=== PATIENT | female | born 1995 | race African-American/Black ===

== ENCOUNTER 2017-03-11 15:43 | Emergency (ER) | payer BC ==
[~2017-03-11] VITALS: Ht 165.1 cm; Wt 79.5 kg
[~2017-03-11 15:43] MED LIST: NAPROSYN500 MG PO; PERCOCET 5/31 TABLET PO
[2017-03-11 16:49] LABS: ADD MIUA? YES; BILIRUBIN NEGATIVE; BLOOD NEGATIVE; COLOR YELLOW ((YELLOW)); GLUCOSE (STRIP) NEGATIVE; KETONES NEGATIVE; LEUKOCYTES NEGATIVE; NITRITE NEGATIVE; PROTEIN (STRIP) NEGATIVE; SPECIFIC GRAVITY 1.018 (1.000-1.030); UROBILINOGEN 0.2 MG/DL (0.2-1.0)
[2017-03-11 16:53] LABS: HEMATOCRIT 42.3 % (36.0-46.0); MCH 28.6 PG (29.0-34.0); MCHC 33.6 G/DL (30.0-36.0); MCV 85.1 FL (83-99); MEAN PLAT.VOLUME 10.2 uM^3 (9.5-12.4); PLATELET COUNT 229 K/uL (156-360); RBC DIS.WIDTH-CV 13.4 % (11.8-14.6); RED BLOOD COUNT 4.97 M/uL (3.80-5.20)
[2017-03-11 17:09] LABS: BACTERIA NONE SEEN /HPF; CASTS NONE SEEN /LPF; CRYSTALS NONE SEEN; EPITHELIAL CELLS RARE /HPF; MUCUS NONE SEEN /LPF; RED BLOOD CELLS 0-5 /HPF (0-5); WHITE BLOOD CELLS RARE /HPF (0-5)
[2017-03-11 17:10] LABS: CHLORIDE 107 mEq/L (99-109); POTASSIUM 4.4 mEq/L (3.7-5.4); SODIUM 141 mEq/L (136-147)
[2017-03-11 17:12] LABS: GLUCOSE 89 mg/dL (70-99)
[2017-03-11 17:13] LABS: ANION GAP 11 MEQ/L (2-14)
[2017-03-11 17:14] LABS: TOTAL BILIRUBIN 0.5 mg/dL (0.0-1.0)
[2017-03-11 17:15] LABS: ALKALINE PHOSPHATASE 50 IU/L (3-129)
[2017-03-11 17:16] LABS: GFR ESTIMATE (CALCULATED) > 59 mL/min/
[2017-03-11 17:17] LABS: UREA NITROGEN (BUN) 9 mg/dL (9-23)
[2017-03-11 17:26] LABS: QUANTITATIVE HCG < 4.0 MIU/ML
[2017-03-11] MEDS ORDERED: BENTYL10 MG PO (18:05)
[2017-03-11 18:16] VITALS: BP 140/79
== END 2017-03-11 18:16 | disposition home or self-care (01) ==
LOC: EME 15:43
PROVIDERS: Physician Assistant
DX: R10.9 Unspecified abdominal pain (principal); R11.2 Nausea with vomiting, unspecified; F17.200 Nicotine dependence, unspecified, uncomplicated
CPT/HCPCS: 80053; 81003; 84702; 85027; 99281; 99284

== ENCOUNTER → 2017-05-05 | Outpatient (CLI) | payer BC ==
[~2017-05-05] MED LIST changes: +BENTYL10 MG PO
== END | disposition home or self-care (01) ==
LOC: NUC 07:19
DX: R11.0 Nausea (principal)
CPT/HCPCS: 78226; A9537